=== PATIENT | female | born 1985 | race Caucasian/White ===

== ENCOUNTER 2017-03-16 10:44 | Emergency (ER) | payer OTHER ==
[~2017-03-16 10:44] MED LIST: IBUP600 PO; OXYC1SOL5 PO; PRENCAP6 PO
[2017-03-16 11:15] VITALS: BP 112/72; PULSE 85
--- NOTE | 2017-03-16 11:22 | PD ---
HPI Chief Complaint Nausea and vomiting Date Seen: Mar 16, 2017 Time Seen: 11:19 Travel History International Travel<30 Days: No Contact w/Intl Traveler<30Days: No Known Affected Area: No History of Present Illness HPI 31-year-old 2 para 1 at 16+ weeks gestation who reports having nausea and vomiting for the last 2 days. She reports having vomited 15 times. She had some decrease in vomiting after taking 25 mg of Phenergan last night but this morning so her symptoms have returned. Denies any significant diarrhea. No fever or chills. No pills at home was been ill. History Past Medical History Medical History: Denies Significant Hx Obstetric History Obstetric History One prior term vaginal delivery Current is been uncomplicated under the care of Dr. Costa. Past Surgical History Surgical History: No Previous Surgery Family History Family History: Negative Social History Alcohol Use: No Tobacco Use: No Substance Abuse: No Allergies-Medications (Allergen,Severity, Reaction): Coded Allergies: No Known Allergies (Unverified , 10/29/15) Home Meds Active Scripts Ondansetron Odt (Zofran Odt) 4 Mg Tab, 4 MG SL Q8HR Y for Nausea/Vomiting, #30 TAB 0 Refills Prov:Jesus Rosas MD 03/16/17 Oxycodone W/ Acetaminophen (Oxycodone/Acetaminophen 5-325 mg/5Ml) 5 mg/325 mg Tab, 2 TAB PO Q4H Y for PAIN SCALE 6 TO 10, #30 TAB Prov:Sunshine Costa MD 10/30/15 Ibuprofen (Motrin 600 Mg Tab) 600 Mg Tab, 600 MG PO Q6H Y for CRAMPING, #30 TAB Prov:Sunshine Costa MD 10/30/15 Reported Medications Mv & Min W/Fe Fumarat ( 1) Cap, 1 CAP PO DAILY, CAP 10/29/15 Review of Systems Except as stated in HPI: all other systems reviewed are Neg Physical Exam Narrative GENERAL: Well-nourished, well-developed patient. SKIN: Warm and dry. HEAD: Normocephalic and atraumatic. EYES: No scleral icterus. No injection or drainage. ENT: No nasal drainage noted. Mucous membranes pink. Airway patent. NECK: Supple, trachea midline. No JVD. CARDIOVASCULAR: Regular rate and rhythm without murmurs, gallops, or rubs. RESPIRATORY: Breath sounds equal bilaterally. No accessory muscle use. ABDOMEN/GI: Abdomen soft, non-tender, bowel sounds present, no rebound, no guarding Gravid to [-] weeks size Fundal Height: [-] GENITOURINARY: External Genitalia: intact and normal in appearance BUS glands: [-] Cervix: [-] Dilatation: [-] Effacement: [-] Station: [-] Presentation: [-] Membranes: [intact or ruptured] Uterine Contractions: [-] FHT's: Category: [-] Baseline: [-] 5] Reactive: [-] Variability: [-] Decels: [-] EXTREMITIES: No cyanosis or edema. BACK: Nontender without obvious deformity. No CVA tenderness. NEUROLOGICAL: Awake and alert. Motor and sensory grossly within normal limits. Five out of 5 muscle strength in all muscle groups. Normal speech. Data Data Vital Signs Reviewed: Yes Orders Orders Vital Signs (Adult) .ON ADMISSION (03/16/17 11:17) Sodium Chlor 0.9% 1000 Ml Inj (Ns 1000 M (03/16/17 11:17) MDM Medical Record Reviewed: Yes Narrative Course / MDM Assessment: Likely viral gastroenteritis Plan: IV hydration, continue antiemetic therapy Diagnosis Diagnosis: Primary Impression: 16 weeks gestation of Additional Impression: Viral gastroenteritis Disposition: 01 DISCHARGE HOME Condition: Good Scripts Ondansetron Odt (Zofran Odt) 4 Mg Tab 4 MG SL Q8HR Y for Nausea/Vomiting, #30 TAB 0 Refills Prov: Jesus Rosas MD 03/16/17 Jesus Rosas MD Mar 16, 2017 11:22
[2017-03-16] MEDS ORDERED: ONDANSETRON ODT 4 MG TAB PO ONE (11:45)
[2017-03-16] MEDS ORDERED: ZOFR4TAB3 SL (11:45)
[2017-03-16] MEDS ORDERED: SODIUM CHLOR 0.9% 1000 ML INJ 1,000 ML IV SCH (12:00)
== END 2017-03-16 12:10 | disposition home or self-care (01) ==
LOC: HOBED 10:44
DX: O98.512 Other viral diseases complicating pregnancy, second trimester (principal); A08.4 Viral intestinal infection, unspecified; Z3A.16 16 weeks gestation of pregnancy
CPT/HCPCS: 99283

== ENCOUNTER 2017-08-23 23:37 | Inpatient (IN) | payer OTHER ==
[~2017-08-23] VITALS: Ht 170.2 cm; Wt 78.9 kg
[~2017-08-23 23:37] MED LIST changes: +ZOFR4TAB3 SL
[2017-08-24] VITALS (62 sets, daily range): BP systolic 83–144; BP diastolic 38–90; PULSE 71–130; RESP 16–20; TEMP 97.8–98.8; O2SAT 100
[2017-08-24] MEDS ORDERED: LACTATED RINGER'S 1000 ML INJ 1,000 ML IV PRN (00:02)
--- NOTE | 2017-08-24 00:09 | PD ---
HPI Chief Complaint LOF Date Seen: Aug 24, 2017 Time Seen: 00:04 Travel History International Travel<30 Days: No Contact w/Intl Traveler<30Days: No Known Affected Area: No History of Present Illness HPI 32y/o @ 39.5wks. Pt has PNC with Dr. Muse. She presents with c/o ROM at 11:15pm. Having ctx q5m. +FM. Pt is GBS+. Weeks Gestation: 39 Para: 1 : 2 History Past Medical History Medical History: Denies Significant Hx Obstetric History Obstetric History x1 current Past Surgical History Surgical History: No Previous Surgery Family History Family History: Negative Social History Alcohol Use: No Tobacco Use: No Substance Abuse: No Allergies-Medications (Allergen,Severity, Reaction): Coded Allergies: No Known Allergies (Unverified , 10/29/15) Home Meds Active Scripts Ondansetron Odt (Zofran Odt) 4 Mg Tab, 4 MG SL Q8HR Y for Nausea/Vomiting, #30 TAB 0 Refills Prov:Jesus Rosas MD 03/16/17 Oxycodone W/ Acetaminophen (Oxycodone/Acetaminophen 5-325 mg/5Ml) 5 mg/325 mg Tab, 2 TAB PO Q4H Y for PAIN SCALE 6 TO 10, #30 TAB Prov:Sunshine Costa MD 10/30/15 Ibuprofen (Motrin 600 Mg Tab) 600 Mg Tab, 600 MG PO Q6H Y for CRAMPING, #30 TAB Prov:Sunshine Costa MD 10/30/15 Reported Medications Mv & Min W/Fe Fumarat ( 1) Cap, 1 CAP PO DAILY, CAP 10/29/15 Review of Systems Except as stated in HPI: all other systems reviewed are Neg Physical Exam Narrative General: well developed, well nourished, no acute distress HEENT: normocephalic atraumatic, extraocular movements intact, neck supple Abdomen: soft, gravid, nontender, nondistended Uterus: fundus term Extremities: full range of motion Skin: normal coloration, no rashes, no suspicious skin lesions noted Neurologic: cranial nerves 2-12 grossly intact, normal muscle tone, normal gait Psychiatric: normal mood and affect, appropriate FHTs: 130s, moderate variability, not yet reactive Shevlin: ctx q5m Cvx: grossly ruptured, /-2 Data Data Vital Signs Reviewed: Yes Orders Orders Vital Signs (Adult) .ON ADMISSION (08/24/17 00:00) ^ Labor Status (08/24/17 00:00) ^ Non Stress Test (08/24/17 00:00) Admit To Inpatient (08/24/17 ) Vital Signs (Adult) .Per protocol (08/24/17 00:02) Heart (08/24/17 00:02) Amnioinfusion (08/24/17 00:02) Urinary Catheter Management .ONCE (08/24/17 00:02) Diet Liquid (08/24/17 Breakfast) Lactated Ringer's 1000 Ml Inj (Lr 1000 M (08/24/17 00:02) Lactated Ringer's 1000 Ml Inj (Lr 1000 M (08/24/17 00:02) Sodium Chlorid 0.9% 500 Ml Inj (Ns 500 M (08/24/17 00:15) Sodium Chlor 0.9% 1000 Ml Inj (Ns 1000 M (08/24/17 00:22) Lidocaine 1% Inj (50 Ml) (Xylocaine 1% I (08/24/17 00:15) Citric Acid-Sodium Citrate Liq (Bicitra (08/24/17 00:15) Fentanyl Inj (Fentanyl Inj) (08/24/17 00:15) Fentanyl Inj (Fentanyl Inj) (08/24/17 00:15) Penicillin G Potassium Inj (Pfizerpen-G (08/24/17 00:15) Penicillin G Potassium Inj (Pfizerpen-G (08/24/17 04:15) Complete Blood Count With Diff (08/24/17 00:02) Hold Clot (08/24/17 00:02) Abo/Rh Blood Type (08/24/17 00:02) Urinalysis - C+S If Indicated (08/24/17 00:02) Drug Screen, Random Urine (08/24/17 00:02) Ob/Psych Drug Screen, Urine (08/24/17 00:02) Resp Oxygen Non Rebreathe Mask (08/24/17 ) ^ Epidural / Intrathecal Infus (08/24/17 00:02) Oxytocin 30 Units-500ml Premix (Pitocin (08/24/17 00:15) Lidocaine 1% Inj (50 Ml) (Xylocaine 1% I (08/24/17 00:15) Light Mineral Oil (Muri-Lube Oil) (08/24/17 00:15) Inpatient Certification (08/24/17 ) Group B Strep: Positive MDM Plan 32y/o @ 39.5wks with SROM. -- admit to L&D -- CLD, epidural/jones PRN -- PCN for GBS+ -- pitocin augmentation in AM PRN Dispo: Dr. Muse (control room technician) notified of pt status and agrees with POC. Courtesy orders placed. He will assume care of the pt. Diagnosis Diagnosis: Primary Impression: 39 weeks gestation of Additional Impressions: Rupture of membranes with clear amniotic fluid GBS (group B Streptococcus carrier), +RV culture, currently Laquita Prince MD Aug 24, 2017 00:09
[2017-08-24] MEDS ORDERED: OXYTOCIN 30 UNITS-500ML PREMIX 500 ML IV ONE (00:15)
[2017-08-24] MEDS: LACTATED RINGER'S 1000 ML INJ 1,000 ML IV SCH ×2 (00:15→04:00)
[2017-08-24] MEDS ORDERED: PENICILLIN G POTASSIUM INJ 5,000,000 UNITS in SODIUM CHLORIDE 0.9% INJ 100 ML IV ONE (00:15)
[2017-08-24] MEDS ORDERED: LIDOCAINE HCL 1% 50 ML VIAL INFIL PRN (00:15)
[2017-08-24] MEDS ORDERED: SODIUM CHLORID 0.9% 500 ML INJ 500 ML IV PRN (00:15)
[2017-08-24] MEDS ORDERED: MINERAL OIL 10 ML VIAL TOPICAL PRN (00:15)
[2017-08-24] MEDS ORDERED: LIDOCAINE HCL 1% 50 ML VIAL I-DERMAL PRN (00:15)
[2017-08-24] MEDS ORDERED: CITRIC ACID-SODIUM CITRATE LIQ 30 ML UDC PO SCH (00:15)
[2017-08-24] MEDS ORDERED: SODIUM CHLOR 0.9% 1000 ML INJ 1,000 ML IV PRN (00:22)
[2017-08-24 00:57] LABS: AUTOMATED NEUTROPHIL # 6.8 TH/MM3 (1.8-7.7); BASOPHIL # 0.1 TH/MM3 (0-0.2); EOSINOPHIL # 0.1 TH/MM3 (0-0.4); HEMATOCRIT 31.6 % (35.0-46.0); HEMOGLOBIN 10.4 GM/DL (11.6-15.3); LYMPH % 19.3 % (9.0-44.0); LYMPHOCYTE # 1.8 TH/MM3 (1.0-4.8); MEAN CELL VOLUME 74.7 FL (80.0-100.0); MEAN CORPUSCULAR HEMOGLOBIN 24.7 PG (27.0-34.0); MEAN CORPUSCULAR HGB CONC 33.1 % (32.0-36.0); MEAN PLATELET VOLUME 8.9 FL (7.0-11.0); MONOCYTE # 0.6 TH/MM3 (0-0.9); NEUT % 72.7 % (16.0-70.0); PLATELET COUNT 281 TH/MM3 (150-450); RED BLOOD COUNT 4.23 MIL/MM3 (4.00-5.30); RED CELL DISTRIBUTION WIDTH 16.8 % (11.6-17.2); WHITE BLOOD COUNT 9.4 TH/MM3 (4.0-11.0)
[2017-08-24 01:04] LABS: BILIRUBIN, URINE NEG (NEG); BLOOD, URINE NEG (NEG); GLUCOSE,URINE NEG (NEG); KETONE, URINE NEG (NEG); MUCUS URINE FEW /lpf (OCC); NITRITE,URINE NEG (NEG); SQUAMOUS EPITHELIAL CELL URINE 1 /hpf (0-5); URINE COLOR YELLOW (YELLW/STRAW); URINE LEUKOCYTE ESTERASE NEG (NEG)
[2017-08-24] MEDS ORDERED: ePHEDrine/NS 25 MG/5 ML SYRINGE ONE (03:47)
[2017-08-24] MEDS ORDERED: fentaNYL 2MCG-BUPIV 0.125% INJ 150 ML EPIDURAL ONE (03:47)
[2017-08-24] MEDS ORDERED: PENICILLIN G POTASSIUM INJ 2,500,000 UNITS in SODIUM CHLORIDE 0.9% INJ 100 ML IV SCH (04:15)
[2017-08-24] MEDS ORDERED: fentaNYL 2MCG-BUPIV 0.125% 150 ML EPIDURAL PRN (04:45)
[2017-08-24] MEDS ORDERED: NO SYSTEM NARCOTICS PRN (04:45)
[2017-08-24] MEDS ORDERED: ePHEDrine/NS 25 MG/5 ML SYRINGE IV PUSH PRN (04:45)
[2017-08-24] MEDS ORDERED: DO NOT ADMINISTER ANTICOAGULANTS PRN (04:45)
[2017-08-24] MEDS ORDERED: OXYTOCIN 30 UNITS/NS 500ML PREMIX IV PRN (07:00)
--- NOTE | 2017-08-24 08:37 | PD.OB.DELI ---
Weeks gestation: 39 Pt started active labor?: Yes Active labor start date: Aug 23, 2017 Active labor start time: 11:00 Medical induction of labor?: No Artificial rupture of membrane: No Artificial ROM date: Aug 24, 2017 Anesthesia: Epidural Episiotomy: None Vaginal Delivery: Normal, Spontaneous Presentation: Occiput anterior Nuchal Cord: None Delayed cord clamping (45 sec): Yes : Male, Single Delivery date: Aug 24, 2017 Delivery time: 08:04 One Minute : 8 Five Minute : 9 Placenta: Spontaneous delivery, Intact, 3 vessel cord Laceration: Vaginal laceration, 1 deg Repair: Chromic interrupted Estimated blood loss: 300 Dennis Muse MD Aug 24, 2017 08:37
--- NOTE | 2017-08-24 08:38 | HHI.DCPOC ---
Discharge Care Plan Diagnosis: (1) Spontaneous vaginal delivery Report Symptoms to Your Doctor -Temperature above 100.5 degrees -Redness, of incision or excessive or foul smelling drainage -Unusual pain or calf pain -Increased vaginal bleeding -Painful or difficulty urinating -Feelings of extreme sadness or anxiety after 2 weeks Goals to Promote Your Health * To prevent worsening of your condition and complications * To maintain your health at the optimal level Directions to Meet Your Goals Take your medications as prescribed Follow your dietary instruction Follow activity as directed Ensure plenty of rest for recovery Drink fluids for hydration Keep your appointments as scheduled Take your immunizations and boosters as scheduled If your symptoms worsen call your PCP, if no PCP go to Urgent Care Center or Emergency Room Smoking is Dangerous to Your Health. Avoid second hand smoke Call the 24-hour crisis hotline for domestic abuse at Dennis Muse MD Aug 24, 2017 08:38
[2017-08-24] MEDS ORDERED: WITCH HAZEL 50%/GLYCERIN 12.5% 40 PAD JAR TOPICAL PRN (08:45)
[2017-08-24] MEDS ORDERED: ONDANSETRON ODT 4 MG TAB PO PRN (08:45)
[2017-08-24] MEDS ORDERED: oxyCODONE/ACETAMINOPHEN 5 MG/325 MG TAB PO PRN ×2 (08:45)
[2017-08-24] MEDS ORDERED: BENZOCAINE 20% TOPICAL SPRAY 60 ML CAN TOPICAL PRN (08:45)
[2017-08-24] MEDS ORDERED: ALUMINUM/MAGNESIUM/SIMETH 30 ML CUP PO PRN (08:45)
[2017-08-24] MEDS ORDERED: SODIUM CHLORIDE 0.9% FLUSH 10 ML FLUSH IV FLUSH PRN (08:45)
[2017-08-24] MEDS ORDERED: DOCUSATE SODIUM 50 MG/SENNA 8.6 MG TAB PO PRN (08:45)
[2017-08-24] MEDS ORDERED: OXYTOCIN 30 UNITS-500ML PREMIX 500 ML IV SCH (09:00)
[2017-08-24] MEDS: IBUPROFEN 800 MG TAB PO PRN ×2 (11:26→20:01)
[2017-08-24] MEDS ORDERED: DIPHTH/TETANUS/ACEL PERTUSSIS (BOOSTER) 0.5 ML VIAL/PFS IM ONE (16:00)
[2017-08-24] MEDS ORDERED: MEASLES, MUMPS, RUBELLA VACCINE 0.5 ML VIAL SQ ONE (16:00)
[2017-08-24] MEDS: ACETAMINOPHEN 325 MG TAB PO PRN ×2 (16:36→23:15)
[2017-08-24] MEDS ORDERED: ZOLPIDEM TARTRATE 5 MG TAB PO PRN (21:00)
[2017-08-25] MEDS: IBUPROFEN 800 MG TAB PO PRN ×2 (07:19→18:44)
[2017-08-25 07:37] VITALS: BP 136/83; PULSE 89; RESP 8; TEMP 98.7
[2017-08-25 07:41] VITALS: RESP 18
--- NOTE | 2017-08-25 08:11 | HHI.OB ---
Subjective Post Day: 1 Remarks pt doing well, no co Objective Vitals/I&O Vital Signs Date Time Temp Pulse Resp B/P (MAP) Pulse Ox O2 Delivery O2 Flow Rate FiO2 08/25/17 07:41 18 08/25/17 07:37 98.7 08/25/17 07:37 89 8 136/83 (100) 08/24/17 20:39 98.8 73 18 110/72 (85) 08/24/17 11:00 98.1 73 20 110/73 (85) 08/24/17 09:01 88 117/69 (85) 08/24/17 08:45 95 118/76 (90) 08/24/17 08:39 98.2 16 08/24/17 08:30 91 122/74 (90) 08/24/17 08:15 103 132/68 (89) Objective Remarks GENERAL: Well-nourished, well-developed patient. CARDIOVASCULAR: Regular rate and rhythm without murmurs, gallops, or rubs. RESPIRATORY: Breath sounds equal bilaterally. No accessory muscle use. ABDOMEN/GI: Abdomen soft, non-tender. Fundus: Firm, non-tender at umbilicus. GENITOURINARY: Light to moderate bleeding. EXTREMITIES: No cyanosis or edema, non-tender, without signs of DVT. Medications and IVs Current Medications Medications (Trade) Dose Ordered Sig/Noemy Route Start Time Stop Time Status Last Admin (NS Flush) 2 ml UNSCH PRN IV FLUSH 08/24/17 08:45 (Tylenol) 650 mg Q4H PRN PO 08/24/17 08:45 08/24/17 23:15 (Motrin) 800 mg Q8H PRN PO 08/24/17 08:45 08/25/17 07:19 (Percocet 5-325 Mg) 1 tab Q4H PRN PO 08/24/17 08:45 (Percocet 5-325 Mg) 2 tab Q4H PRN PO 08/24/17 08:45 (Americaine 20% Top Spr) 1 spray Q4H PRN TOPICAL 08/24/17 08:45 08/24/17 11:26 (Tucks Pads) 1 applic QID PRN TOPICAL 08/24/17 08:45 08/24/17 11:26 (Zhanna-Colace) 2 tab Q12H PRN PO 08/24/17 08:45 (Ambien) 5 mg HS PRN PO 08/24/17 21:00 (Mag-Al Plus Susp Liq) 15 ml Q8H PRN PO 08/24/17 08:45 (Zofran Odt) 4 mg Q6H PRN PO 08/24/17 08:45 Assessment/Plan Assessment and Plan PPD # 1 s/p doing well, routine care Francia Mccabe MD Aug 25, 2017 08:11
[2017-08-25] MEDS: ACETAMINOPHEN 325 MG TAB PO PRN (11:30)
[2017-08-26] MEDS: IBUPROFEN 800 MG TAB PO PRN (03:52)
[2017-08-26 07:10] VITALS: BP 128/74; PULSE 83; RESP 16; TEMP 99; O2SAT 96
--- NOTE | 2017-08-26 07:34 | HHI.DS ---
Admission Date Aug 24, 2017 at 00:08 Discharge Date: Aug 26, 2017 Admitting Diagnosis Diagnosis: (1) Spontaneous vaginal delivery ICD Codes: O80 - Encounter for full-term uncomplicated delivery Status: Acute Delivery Date: Aug 24, 2017 Vaginal Delivery: Normal, Spontaneous Infant: Male, Single Brief History 32y/o @ 39.5wks. Pt has PNC with Dr. Muse. She presents with c/o ROM at 11:15pm. Having ctx q5m. +FM. Pt is GBS+. Hospital Course on day of admission and remained in hospital for 2 days PP. She is doing well and ready for DC home Pt Condition on Discharge: Good Discharge Disposition: Discharge Home Discharge Instructions Diet Instructions: As Tolerated, No Restrictions Activities You Can Perform: Pelvic Rest Activities to Avoid: Driving for 24 hrs Follow up Referrals: [facility] - 2 Weeks @ [facility] with Dennis Muse MD Discontinued Medications: Mv & Min W/Fe Fumarat ( 1) 30 Mg-975 Mcg-200 Mg Cap 1 CAP PO DAILY, CAP Dennis Muse MD Aug 26, 2017 07:34
== END 2017-08-26 09:58 | disposition home or self-care (01) | DRG 775 ==
LOC: HOBED 23:37 → H2EB 08-24 00:08 → H1EA 08-24 10:36
PROVIDERS: ADMIT Obstetrics & Gynecology; ATTEND Obstetrics & Gynecology
PROC: 10E0XZZ Delivery of Products of Conception, External Approach (ICD-10-PCS; principal; 2017-08-23)
PROC: 0HQ9XZZ Repair Perineum Skin, External Approach (ICD-10-PCS; 2017-08-23)
PROC: 3E0S3BZ Introduction of Anesthetic Agent into Epidural Space, Percutaneous Approach (ICD-10-PCS; 2017-08-23)
DX: O99.824 Streptococcus B carrier state complicating childbirth (principal); Z37.0 Single live birth; O70.0 First degree perineal laceration during delivery; Z3A.39 39 weeks gestation of pregnancy
CPT/HCPCS: 59025; 80307; 81001; 85025; 86900; 86901; J2540; J2590; J7120